=== PATIENT | female | born 1990 | race Caucasian/White ===

== ENCOUNTER 2024-08-26 10:48 | Emergency (ER) | payer BC, OTHER ==
[2024-08-26] MEDS ORDERED: Triple Antibiotic Oint 1 GM Packet ONE (13:04)
== END 2024-08-26 13:15 | disposition home or self-care (01) ==
LOC: CSHERS 10:48
DX: S93.401A Sprain of unspecified ligament of right ankle, initial encounter (principal); W19.XXXA Unspecified fall, initial encounter
CPT/HCPCS: 99283